=== PATIENT | female | born 1935 | race African-American/Black ===

== ENCOUNTER 2018-10-30 13:35 | Inpatient (IN) ==
[2018-10-30 15:30] LABS: Basophils # 0.1 10*3/uL (0.0-0.2); Basophils % 0.4 % (0.0-0.8); Eosinophils % 0.2 % (0.00-10.9); Hematocrit 44.5 VOL% (35.7-47.0); Hemoglobin 13.5 GM/DL (12.0-16.0); Immature Granulocytes % 0.5 %; Immature Granulocytes Absolute 0.07 #; Lymphocytes # 1.7 10*3/uL (1.4-4.0); Lymphocytes % 13.6 % (21.3-54.2); Mean Corpuscular HGB Conc 30.3 GM/DL (32-36); Mean Corpuscular Volume 91.9 FL (87-102); Mean Platelet Volume 10.2 FL (9.6-12.0); Monocytes % 7.1 % (1.7-12.7); Neutrophils % 78.2 % (38.7-73.9); Platelet Count 262 T/CUMM (130-400); Red Blood Count 4.84 MC/CUMM (3.8-5.5); Red Cell Distribution Width 14.8 % (9.3-17.3); White Blood Count 12.8 T/CUMM (4-12)
[2018-10-30 15:52] LABS: Albumin 3.4 G/DL (3.4-5.0); Bilirubin,Total 0.5 MG/DL (0.2-1.0); Calcium 11.1 MG/DL (8.5-10.1); Osmolality,Calculated 293.4 MOS/KG (273-304); Total Protein 7.6 G/DL (6.4-8.3)
[2018-10-30 16:40] LABS: Apearance,Urine Slightly Hazy (Clear); Bacteria,Urine Many /HPF (Few); Bilirubin,Urine Negative (Negative); Blood, Urine Negative (Negative); Glucose,Urine (UA) Negative (Negative); Ketones,Urine Negative (Negative); Mucus,Urine Occasional /LPF (Occasional); Nitrite,Urine Positive (Negative); Protein,Urine Negative; RBC,Urine 1 /HPF (0-4); Squamous Epithelial Cell,Urine Occasional /HPF (0-10); Urine Specific Gravity 1.016 (1.001-1.035); Urine Urobilinogen < 2.0 EU/DL (0.2-1.0); WBC,Urine 22 /HPF (0-6)
[2018-10-30 16:41] LABS: Urine Color Yellow (Yellow)
[2018-10-30] MEDS ORDERED: SODIUM CHLORIDE 0.9% 1,000 ML IV STA (16:58)
[2018-10-30] MEDS ORDERED: cefTRIAXone 1,000 MG in SODIUM CHLORIDE 0.9% 100 ML IV STA (16:58)
[2018-10-30] MEDS ORDERED: ONDANSETRON 4 MG/2 ML VIAL IV PRN (19:07)
[2018-10-30] MEDS ORDERED: GLUCAGON 1 MG VIAL IM PRN (19:07)
[2018-10-30] MEDS ORDERED: ACETAMINOPHEN 325 MG TABLET PO PRN (19:07)
[2018-10-30] MEDS ORDERED: DEXTROSE 10% 250 ML BAG IV PRN (19:07)
[2018-10-30] MEDS ORDERED: ENOXAPARIN 30 MG/0.3 ML SYRINGE SUBCUT SCH (19:07)
[2018-10-30] MEDS: SODIUM CHLORIDE 0.45% 1,000 ML IV SCH (19:47)
[2018-10-30] MEDS: ENOXAPARIN 30 MG/0.3 ML SYRINGE SUBCUT SCH (22:37)
[2018-10-30] MEDS: INSULIN LISPRO 100 UNIT/ML SUBCUT SCH (22:53)
[2018-10-31] MEDS: SODIUM CHLORIDE 0.45% 1,000 ML IV SCH (04:53)
[2018-10-31 06:08] LABS: Basophils % 0.4 % (0.0-0.8); Eosinophils # 0.1 10*3/uL (0.0-0.87); Eosinophils % 0.8 % (0.00-10.9); Hematocrit 35.9 VOL% (35.7-47.0); Immature Granulocytes % 0.4 %; Immature Granulocytes Absolute 0.04 #; Lymphocytes # 1.5 10*3/uL (1.4-4.0); Lymphocytes % 13.9 % (21.3-54.2); Mean Corpuscular HGB Conc 30.6 GM/DL (32-36); Mean Corpuscular Volume 91.6 FL (87-102); Mean Platelet Volume 10.5 FL (9.6-12.0); Monocytes % 8.2 % (1.7-12.7); Neutrophils % 76.3 % (38.7-73.9); Platelet Count 216 T/CUMM (130-400); Red Blood Count 3.92 MC/CUMM (3.8-5.5); Red Cell Distribution Width 14.9 % (9.3-17.3); White Blood Count 10.6 T/CUMM (4-12)
[2018-10-31 06:18] LABS: Calcium 9.7 MG/DL (8.5-10.1); Osmolality,Calculated 292.3 MOS/KG (273-304)
[2018-10-31] MEDS: INSULIN LISPRO 100 UNIT/ML SUBCUT SCH ×4 (09:28→22:19)
[2018-10-31] MEDS: DEXTROSE 5% NACL 0.45% 1,000 ML IV SCH ×2 (09:41→23:12)
[2018-10-31] MEDS: POTASSIUM CHLORIDE 20 MEQ TABLET PO PRN ×4 (09:41→19:30)
[2018-10-31] MEDS: PANTOPRAZOLE 40 MG TABLET PO SCH (09:41)
[2018-10-31] MEDS: PARoxetine 20 MG TABLET PO SCH (09:41)
[2018-10-31] MEDS: LEVOTHYROXINE 100 MCG TABLET PO SCH (09:41)
[2018-10-31] MEDS: cefTRIAXone 1,000 MG in SYRINGE 1 EACH IV SCH (19:27)
[2018-10-31] MEDS: SIMVASTATIN 20 MG TABLET PO SCH (22:19)
[2018-10-31] MEDS: ENOXAPARIN 30 MG/0.3 ML SYRINGE SUBCUT SCH (22:19)
[2018-11-01 00:31] LABS: Alanine Aminotransferase 9 U/L (13-56); Albumin 2.4 G/DL (3.4-5.0); Alkaline Phosphatase 50 U/L (45-117); Aspartate Amino Transferase 11 U/L (0-37); Bilirubin,Total < 0.39 MG/DL (0.2-1.0); Blood Urea Nitrogen 8 MG/DL (7-18); Calcium 9.3 MG/DL (8.5-10.1); Glucose 133 MG/DL (74-106); Osmolality,Calculated 293.3 MOS/KG (273-304); Total Protein 5.6 G/DL (6.4-8.3)
[2018-11-01 05:47] LABS: Basophils % 0.4 % (0.0-0.8); Eosinophils # 0.2 10*3/uL (0.0-0.87); Eosinophils % 3.4 % (0.00-10.9); Hematocrit 33.4 VOL% (35.7-47.0); Hemoglobin 10.2 GM/DL (12.0-16.0); Immature Granulocytes % 0.3 %; Immature Granulocytes Absolute 0.02 #; Lymphocytes # 1.5 10*3/uL (1.4-4.0); Lymphocytes % 22.6 % (21.3-54.2); Mean Corpuscular HGB Conc 30.5 GM/DL (32-36); Mean Corpuscular Volume 90.8 FL (87-102); Mean Platelet Volume 10.8 FL (9.6-12.0); Neutrophils % 65.3 % (38.7-73.9); Platelet Count 190 T/CUMM (130-400); Red Blood Count 3.68 MC/CUMM (3.8-5.5); Red Cell Distribution Width 14.7 % (9.3-17.3); White Blood Count 6.8 T/CUMM (4-12)
[2018-11-01 06:08] LABS: Osmolality,Calculated 290.4 MOS/KG (273-304)
[2018-11-01] MEDS: PARoxetine 20 MG TABLET PO SCH (08:42)
[2018-11-01] MEDS: LEVOTHYROXINE 100 MCG TABLET PO SCH (08:42)
[2018-11-01] MEDS: PANTOPRAZOLE 40 MG TABLET PO SCH (08:42)
[2018-11-01] MEDS: INSULIN LISPRO 100 UNIT/ML SUBCUT SCH ×4 (08:42→20:51)
[2018-11-01] MEDS: POTASSIUM CHLORIDE RIDER 10 MEQ in PREMIX 1 EACH IV PRN ×3 (10:20→13:54)
[2018-11-01] MEDS: DEXTROSE 5% NACL 0.45% 1,000 ML IV SCH (16:52)
[2018-11-01] MEDS: cefTRIAXone 1,000 MG in SYRINGE 1 EACH IV SCH (18:12)
[2018-11-01] MEDS: ENOXAPARIN 30 MG/0.3 ML SYRINGE SUBCUT SCH (20:55)
[2018-11-01] MEDS: SIMVASTATIN 20 MG TABLET PO SCH (20:56)
[2018-11-02] MEDS: DEXTROSE 5% NACL 0.45% 1,000 ML IV SCH ×2 (03:46→16:46)
[2018-11-02 06:01] LABS: Basophils % 0.4 % (0.0-0.8); Eosinophils # 0.2 10*3/uL (0.0-0.87); Eosinophils % 3.5 % (0.00-10.9); Hematocrit 34.6 VOL% (35.7-47.0); Immature Granulocytes % 0.6 %; Immature Granulocytes Absolute 0.03 #; Lymphocytes # 1.5 10*3/uL (1.4-4.0); Lymphocytes % 28.1 % (21.3-54.2); Mean Corpuscular HGB Conc 31.8 GM/DL (32-36); Mean Corpuscular Volume 88.9 FL (87-102); Mean Platelet Volume 10.8 FL (9.6-12.0); Monocytes % 7.3 % (1.7-12.7); Neutrophils % 60.1 % (38.7-73.9); Platelet Count 223 T/CUMM (130-400); Red Blood Count 3.89 MC/CUMM (3.8-5.5); Red Cell Distribution Width 14.4 % (9.3-17.3); White Blood Count 5.2 T/CUMM (4-12)
[2018-11-02 06:26] LABS: Osmolality,Calculated 286.7 MOS/KG (273-304)
[2018-11-02] MEDS: LEVOTHYROXINE 100 MCG TABLET PO SCH (06:27)
[2018-11-02] MEDS: INSULIN LISPRO 100 UNIT/ML SUBCUT SCH ×4 (07:53→23:24)
[2018-11-02] MEDS: PANTOPRAZOLE 40 MG TABLET PO SCH (08:43)
[2018-11-02] MEDS: PARoxetine 20 MG TABLET PO SCH (08:43)
[2018-11-02] MEDS ORDERED: MAGNESIUM HYDROXIDE SUSP 30 ML UDCUP PO ONE (09:17)
[2018-11-02] MEDS: cefTRIAXone 1,000 MG in SYRINGE 1 EACH IV SCH (17:14)
[2018-11-02] MEDS: ENOXAPARIN 30 MG/0.3 ML SYRINGE SUBCUT SCH (21:14)
[2018-11-02] MEDS: SIMVASTATIN 20 MG TABLET PO SCH (21:14)
[2018-11-03] MEDS: DEXTROSE 5% NACL 0.45% 1,000 ML IV SCH ×2 (05:18→17:50)
[2018-11-03] MEDS: LEVOTHYROXINE 100 MCG TABLET PO SCH (06:36)
[2018-11-03] MEDS: PANTOPRAZOLE 40 MG TABLET PO SCH (09:18)
[2018-11-03] MEDS: PARoxetine 20 MG TABLET PO SCH (09:18)
[2018-11-03] MEDS: INSULIN LISPRO 100 UNIT/ML SUBCUT SCH ×4 (09:18→21:01)
[2018-11-03] MEDS: cefTRIAXone 1,000 MG in SYRINGE 1 EACH IV SCH (17:45)
[2018-11-03] MEDS: ENOXAPARIN 30 MG/0.3 ML SYRINGE SUBCUT SCH (21:05)
[2018-11-03] MEDS: SIMVASTATIN 20 MG TABLET PO SCH (21:05)
[2018-11-04 03:33] VITALS: BP 162/78
[2018-11-04] MEDS: DEXTROSE 5% NACL 0.45% 1,000 ML IV SCH (05:18)
[2018-11-04] MEDS: LEVOTHYROXINE 100 MCG TABLET PO SCH (06:10)
[2018-11-04 06:31] LABS: Risk Ratio 3.95; VLDL CHOLESTEROL 37.4 MG/DL
[2018-11-04] MEDS: INSULIN LISPRO 100 UNIT/ML SUBCUT SCH ×2 (07:57→14:28)
[2018-11-04] MEDS: PARoxetine 20 MG TABLET PO SCH (08:33)
[2018-11-04] MEDS: PANTOPRAZOLE 40 MG TABLET PO SCH (08:33)
== END 2018-11-04 15:30 | DRG 689 ==
LOC: N.ED 13:35 → SUATTDRO 17:37 → N.EDINP 17:37 → N.5E 18:15
PROVIDERS: ADMIT Internal Medicine; ATTEND Internal Medicine